=== PATIENT | female | born 1960 | race Caucasian/White ===

== ENCOUNTER 2018-06-15 06:01 | Day surgery (SDC) | payer OTHER, BC ==
[~2018-06-15 06:01] MED LIST: Acetaminophen 325 MG Tab PO SCH; Lactated Ringers 1,000 ML IV SCH; Lidocaine 1%/Sod Bicarbonate in NS 8.4% 1 ML Syringe IDERM PRN; Pregabalin 25 MG Cap PO SCH; Sodium Chloride 0.9% 10 ML Syringe FLUSH PRN; oxyCODONE ER 10 MG TAB.ER PO SCH
[2018-06-15] MEDS ORDERED: ceFAZolin 1 GM Vial ONE ×2 (06:22→06:34)
[2018-06-15] MEDS ORDERED: Iodine/Sodium Iodide 2% Tincture 30 ML Bottle ONE (06:22)
[2018-06-15] MEDS ORDERED: Bupivacaine 0.25% 30 ML SDV ONE (06:22)
[2018-06-15] MEDS ORDERED: Vancomycin 1 GM SDV ONE ×2 (06:22→06:40)
[2018-06-15] MEDS ORDERED: Propofol 200 MG/20 ML SDV ONE (06:25)
[2018-06-15] MEDS ORDERED: fentaNYL 100 MCG/2 ML SDV ONE (06:26)
[2018-06-15] MEDS ORDERED: Midazolam 1 MG/ML 2 ML SDV ONE (06:26)
[2018-06-15] MEDS ORDERED: Bisacodyl 5 MG Tab PO PRN (06:28)
[2018-06-15] MEDS ORDERED: Cyclobenzaprine 10 MG Tab PO PRN (06:28)
[2018-06-15] MEDS ORDERED: Morphine 2 MG/ML Syringe IVPUSH PRN (06:28)
[2018-06-15] MEDS ORDERED: Naloxone 0.4 MG/ML SDV IVPUSH PRN (06:28)
[2018-06-15] MEDS ORDERED: Magnesium Hydroxide 400 MG/5 ML Susp 30 ML Cup PO PRN (06:28)
[2018-06-15] MEDS ORDERED: Sennosides 8.6 MG Tab PO PRN (06:28)
[2018-06-15] MEDS ORDERED: Ondansetron 4 MG/2 ML SDV IVPUSH PRN ×2 (06:28→08:15)
[2018-06-15] MEDS ORDERED: Bupivacaine 0.75% 30 ML SDV ONE (06:30)
[2018-06-15] MEDS ORDERED: Lidocaine 1% 4 ML ONE (06:30)
[2018-06-15] MEDS ORDERED: Dexamethasone 4 MG/ML SDV ONE (06:30)
[2018-06-15] MEDS ORDERED: Morphine 8 MG, EPINEPHrine 0.3 MG, Cefuroxime 750 MG, Ketorolac 30 MG, Sodium Chloride ... ONE ×5 (07:30)
[2018-06-15] MEDS ORDERED: diphenhydrAMINE 50 MG/ML SDV IVPUSH PRN (08:15)
[2018-06-15] MEDS ORDERED: Meperidine 50 MG/ML Vial IVPUSH ONE (08:15)
[2018-06-15] MEDS ORDERED: fentaNYL 100 MCG/2 ML SDV IVPUSH PRN (08:15)
--- NOTE | 2018-06-15 08:39 | PCM.OPNOTE ---
- General Post-Op/Procedure Note Date of Surgery/Procedure: 06/15/18 Operative Procedure(s): right total knee arthroplasty Pre Op Diagnosis: right knee osteoarthrosis Post-Op Diagnosis: Same Anesthesia Technique: Local, MAC, Spinal Primary Surgeon: Vasiliy Dillard Anesthesia Provider: Jorge Alberto Can Director Of Maternity Services: Jeanne Massey Director Of Maternity Services: Sarah Henriquez EBPamela in mLs: 500 Complications: None Condition: Good Free Text/Narrative:: size 5/5 9mm 32x10
[2018-06-15] MEDS ORDERED: Ropivacaine 0.5% 5 MG/ML 30 ML SDV ONE (08:47)
[2018-06-15] MEDS ORDERED: EPINEPHrine 1 MG/ML SDV ONE (08:47)
--- NOTE | 2018-06-15 08:57 | PCM.POSTAN ---
POST ANESTHESIA ASSESSMENT - MENTAL STATUS Mental Status: Alert, Oriented - VITAL SIGNS Pulse Rate: 95 SaO2: 93 Resp Rate: 16 Blood Pressure: 128/42 Temperature: 36.3 C - RESPIRATORY Respiratory Status: Respiratory Rate WNL, Airway Patent, O2 Saturation Stable, Supplemental Oxygen - CARDIOVASCULAR CV Status: Pulse Rate WNL, Blood Pressure Stable - GASTROINTESTINAL GI Status: No Symptoms - PAIN Pain Score: 0 - POST OP HYDRATION Hydration Status: Adequate & Stable
--- NOTE | 2018-06-15 08:58 | OR ---
DATE OF OPERATION: 06/15/2018 SURGEON: Vasiliy Dillard MD OPERATION PERFORMED: Right total knee arthroplasty. PREOPERATIVE DIAGNOSIS: Right knee osteoarthrosis. POSTOPERATIVE DIAGNOSIS: Right knee osteoarthrosis. ANESTHESIA: Local MAC with spinal. ANESTHESIA PROVIDER: Jorge Alberto Can. STUDENT UNION CONSULTANT: Jeanne Massey PA-C and Sarah Henriquez LPN. ESTIMATED BLOOD LOSS: 500 mL. COMPLICATIONS: None. CONDITION: Stable. IMPLANTS: 1. Gilberto size 5 press-fit CR femur. 2. Gilberto size 5 press-fit tibial base plate. 3. Gilberto size 5, 9 mm CS polyethylene insert. 4. Gilberto size 32 x 10 mm press-fit patella. DESCRIPTION OF PROCEDURE: The patient was identified in the preop holding area. Proper site was marked and identified by the surgeon. The patient was taken back to the operating theater. After adequate anesthesia, the patient's right lower extremity had a nonsterile tourniquet applied and it was sterilely prepped and draped in the usual sterile fashion. OR time-out was performed. The patient received 2 g IV Ancef. At this time, the right lower extremity was exsanguinated. Tourniquet was insufflated to 300 mmHg. Standard medial parapatellar incision was made. Medial parapatellar arthrotomy was created. Deep fibers of the MCL were raised and anterior fat pad was resected. At this time, attention was turned to the patella. Patella measured 24, it was resected to a 14 for a 32 x 10 mm patella. Drill holes were then drilled and found to be in adequate position. The drill was then drilled in the distal femur and the intramedullary distal femoral cutting guide was then placed. An 8 mm was resected off the distal femur and was found to be an adequate resection. Sizing guide was placed. It was found to be a size 5 press-fit CR femur that was shown on the implant record at the beginning of this dictation. The drill holes were drilled for the epicondylar axis using [place] line and epicondyles as reference. At this time, the 4-in- 1 cutting block was placed. An anterior posterior and anterior and posterior chamfer cuts were then completed. Attention was turned to the tibia. The posterior medial lateral retractors were placed. The extramedullary tibial guide was placed. It was placed in the old footprint of the ACL. It was aligned with the center of the ankle and 0 degrees of slope, 9 mm was then resected off the unaffected side. There was found to be an acceptable reduction. At this time, posterior osteophytes were removed along with medial and lateral meniscus. A trial implant was placed with a correct sized tibia that was mentioned at the beginning of the dictation. A Gilberto size 5, 9 mm CS polyethylene insert was then placed. The patient's knee was brought through range of motion. The patella was tracking centrally and was stable to varus and valgus stress. Alignment was found to be roughly at 0 degrees. The tibia was stamped and drilled in proper rotation. The universal tibial base plate was impacted in place. Next, the Gilberto size 5 press-fit CR femur impacted into place and the [place] size 5, 9 mm CS polyethylene insert was placed. The patient's knee was brought into full extension. The patella was then press-fit in place at this time. Tourniquet was deflated. One liter dilute Betadine solution was irrigated through the knee along with 3 L of pulse lavage irrigation with Ancef. Periarticular injection was then completed. The patient's knee was brought through a range of motion. Once the cement had time to set up and it was found to be stable to varus valgus stress, the patella was tracking centrally with full range of motion. At this time, a #2 barbed suture was used for closure of the medial parapatellar arthrotomy. Topical tranexamic acid was placed. 2-0 Vicryl was used subcutaneously, Prineo was used for the skin. The patient tolerated the procedure well and was sent to the PACU in stable condition. MMODAL /[id number]
--- NOTE | 2018-06-15 09:01 | PCM.PREANE ---
Preanesthetic Assessment - Procedure Proposed Procedure: Right TKA - Anesthesia/Transfusion/Family Hx Anesthesia History: Prior Anesthesia Without Reaction Family History of Anesthesia Reaction: No - Review of Systems General: No Symptoms Pulmonary: Other (Asthma- only uses albuterol inhaler a couple times a year.) Cardiovascular: Other (HTN, HLD) Gastrointestinal: No Symptoms Neurological: No Symptoms Other: Reports: Diabetes (GS 138 at 0622), Depression - Physical Assessment NPO Status Date: 06/14/18 NPO Status Time: 18:30 Pulse: 79 O2 Sat by Pulse Oximetry: 92 Respiratory Rate: 16 Blood Pressure: 176/72 Temperature: 36.2 C Vital Signs: Last Vital Signs Temp 36.3 C 06/15/18 08:57 Pulse 95 06/15/18 08:57 Resp 16 06/15/18 08:57 BP 128/42 L 06/15/18 08:57 Pulse Ox 93 L 06/15/18 08:57 Height: 1.55 m Weight: 110 kg ASA Class: 2 Mental Status: Alert & Oriented x3 Airway Class: Mallampati = 3 Dentition: Reports: Partial (bottom removable) Thyro-Mental Finger Breadths: 3 Mouth Opening Finger Breadths: 3 ROM/Head Extension: Full Lungs: Clear to Auscultation, Normal Respiratory Effort Cardiovascular: Regular Rate, Regular Rhythm - Lab Values: Laboratory Last Values POC Glucose 138 mg/dL (70-105) H 06/15/18 06:22 MRSA (PCR) Negative 06/03/18 11:48 - Allergies Allergies/Adverse Reactions: Allergies Allergy/AdvReac Type Severity Reaction Status Date / Time No Known Allergies Allergy Verified 06/15/18 06:47 - Blood Blood Available: No - Anesthesia Plan Pre-Op Medication Ordered: None - Acknowledgements Anesthesia Type Planned: Spinal (with post operative adductor canal block ) Pt an Appropriate Candidate for the Planned Anesthesia: Yes Alternatives and Risks of Anesthesia Discussed w Pt/Guardian: Yes Pt/Guardian Understands and Agrees with Anesthesia Plan: Yes PreAnesthesia Questionnaire - HOME MEDS Home Medications: Home Meds Acetaminophen/HYDROcodone [[place] 325-5 MG] 1 tab PO ASDIRECTED PRN 06/15/18 [ History] Cholecalciferol (Vitamin D3) [Vitamin D3] 2,000 unit PO DAILY 06/15/18 [History] Cinnamon Bark [Cinnamon] 1,000 mg PO DAILY 06/15/18 [History] Citalopram Hydrobromide [Celexa] 10 mg PO DAILY 06/15/18 [History] Fish Oil/[place]-3 Fatty Acids [Fish Oil 1,000 MG] 1,000 mg PO DAILY 06/15/18 [ History] Insulin Aspart [NovoLOG] 12 units SUBCUT TID 06/15/18 [History] Insulin Glarg,Human.Rec.Analog [Lantus] 35 units SUBCUT DAILY 06/15/18 [History] Lisinopril 40 mg PO DAILY 06/15/18 [History] atorvaSTATin [Lipitor] 20 mg PO DAILY 06/15/18 [History] metFORMIN [Glucophage XR] 1,000 mg PO BID 06/15/18 [History] - CURRENT (IN HOUSE) MEDS Current Meds: Current Medications Acetaminophen (Tylenol) 975 mg PO ONETIME [facility] Stop: 06/15/18 14:00 Last Admin: 06/15/18 06:41 Dose: 975 mg Aspirin (Ecotrin) 325 mg PO BID FRE[facility] Bisacodyl (Dulcolax) 5 mg PO DAILY PRN PRN Reason: Constipation Cyclobenzaprine HCl (Flexeril) 10 mg PO TID PRN PRN Reason: Spasms Diphenhydramine HCl (Benadryl) 25 mg IVPUSH Q6H PRN PRN Reason: Pruritis Stop: 06/15/18 14:00 Docusate Sodium (Colace) 100 mg PO BID [facility]RE[facility] Famotidine (Pepcid) 20 mg PO Q12H [facility] Fentanyl (Sublimaze) 50 mcg IVPUSH Q5M PRN PRN Reason: Pain Stop: 06/15/18 12:00 Lactated Ringer's (Ringers, Lactated) 1,000 mls @ 125 mls/hr IV ASDIRECTED [facility]RE[facility] Stop: 06/15/18 23:00 Last Admin: 06/15/18 06:25 Dose: 125 mls/hr Cefazolin Sodium/Dextrose 2 gm (/ Premix) 50 mls @ 100 mls/hr IV Q8H [facility]RE[facility] Stop: 06/16/18 07:29 Ketorolac Tromethamine (Toradol) 15 mg IVPUSH Q6H PRN PRN Reason: Pain Lidocaine/Sodium Bicarbonate (Buffered Lidocaine 1% In Ns 8.4%) 0.25 ml IDERM ONETIME PRN PRN Reason: Prior to IV Start Stop: 06/15/18 18:00 Magnesium Hydroxide (Milk Of Magnesia) 30 ml PO BID PRN PRN Reason: Constipation Morphine Sulfate (Morphine) 2 mg IVPUSH Q2H PRN PRN Reason: Breakthrough Pain Naloxone HCl (Narcan) 0.1 mg IVPUSH Q5M PRN PRN Reason: Oversedation Ondansetron HCl (Zofran) 4 mg IVPUSH Q6H PRN PRN Reason: Nausea/Vomiting Ondansetron HCl (Zofran) 4 mg IVPUSH ONETIME PRN PRN Reason: Nausea/Vomiting Stop: 06/15/18 12:00 Oxycodone HCl (Oxycontin) 10 mg PO ONETIME [facility] Stop: 06/15/18 14:00 Last Admin: 06/15/18 06:41 Dose: 10 mg Oxycodone/Acetaminophen (Percocet 325-5 Mg) 1 - 2 tab PO Q4H PRN PRN Reason: Pain Pregabalin (Lyrica) 50 mg PO ONETIME [facility] Stop: 06/15/18 14:00 Last Admin: 06/15/18 06:41 Dose: 50 mg Senna (Senna) 8.6 mg PO BID PRN PRN Reason: Constipation Sodium Chloride (Saline Flush) 10 ml FLUSH ASDIRECTED PRN PRN Reason: Keep Vein Open Stop: 06/15/18 18:00 Discontinued Medications Bupivacaine HCl (Marcaine 0.25%) Confirm Administered Dose 30 ml .ROUTE .STK- MED ONE Stop: 06/15/18 06:23 Last Admin: 06/15/18 08:16 Dose: 30 ml Bupivacaine HCl (Sensorcaine-Mpf 0.75%) Confirm Administered Dose 30 ml .ROUTE .STK-MED ONE Stop: 06/15/18 06:31 Cefazolin Sodium (Ancef) Confirm Administered Dose 2 gm .ROUTE .STK-MED ONE Stop: 06/15/18 06:23 Last Admin: 06/15/18 08:15 Dose: 2 gm Cefazolin Sodium (Ancef) Confirm Administered Dose 2 gm .ROUTE .STK-MED ONE Stop: 06/15/18 06:35 Morphine Sulfate 8 mg/Epinephrine HCl 0.3 mg/Cefuroxime Sodium 750 mg/Ketorolac Tromethamine 30 mg/Sodium Chloride 27.9 ml 0 mg .XX ONETIME ONE Stop: 06/15/18 07:31 Last Admin: 06/15/18 08:16 Dose: 788.3 mg Dexamethasone (Dexamethasone) Confirm Administered Dose 8 mg .ROUTE .STK-MED ONE Stop: 06/15/18 06:31 Epinephrine HCl (Adrenalin) Confirm Administered Dose 1 mg .ROUTE .STK-MED ONE Stop: 06/15/18 08:48 Fentanyl (Sublimaze) Confirm Administered Dose 100 mcg .ROUTE .STK-MED ONE Stop: 06/15/18 06:27 Lidocaine HCl (Xylocaine-Mpf 1%) Confirm Administered Dose 4 mls @ as directed .ROUTE .STK-MED ONE Stop: 06/15/18 06:31 Lidocaine HCl (Xylocaine-Mpf 1%) Confirm Administered Dose 5 mls @ as directed .ROUTE .ST-MED ONE Stop: 06/15/18 06:31 Iodine (Iodine 2% Mild Tincture) Confirm Administered Dose 30 ml .ROUTE .ST- MED ONE Stop: 06/15/18 06:23 Last Admin: 06/15/18 08:12 Dose: 18 ml Meperidine HCl (Meperidine) 12.5 mg IVPUSH ONETIME ONE Stop: 06/15/18 08:16 Midazolam HCl (Versed 1 Mg/Ml) Confirm Administered Dose 2 mg .ROUTE .STK-MED ONE Stop: 06/15/18 06:27 Propofol (Diprivan 20 Ml) Confirm Administered Dose 600 mg .ROUTE .ST-MED ONE Stop: 06/15/18 06:26 Ropivacaine (Naropin 0.5%) Confirm Administered Dose 30 ml .ROUTE .STK-MED ONE Stop: 06/15/18 08:48 Tranexamic Acid (Cyklokapron) Confirm Administered Dose 1,000 mg .ROUTE .STK- MED ONE Stop: 06/15/18 06:23 Last Admin: 06/15/18 08:24 Dose: 1,000 mg Vancomycin HCl (Vancomycin) Confirm Administered Dose 1 gm .ROUTE .STK-MED ONE Stop: 06/15/18 06:23 Vancomycin HCl (Vancomycin) Confirm Administered Dose 1 gm .ROUTE .STK-MED ONE Stop: 06/15/18 06:41 Last Admin: 02/11/19 08:19 Dose: 1 gm
--- NOTE | 2018-06-15 09:53 | CR ---
Right knee: AP and lateral views of the right knee were obtained. Comparison: No previous knee exam. Knee prosthesis is seen. Small amount of soft tissue air is noted. Components of the prosthesis are maintained. Underlying bony structures are intact. Impression: 1. Satisfactory postop radiographic appearance of recently placed right knee prosthesis. Diagnostic code #2
--- NOTE | 2018-06-15 12:03 | PCM.CONS ---
H&P History of Present Illness - General Date of Service: 06/15/18 Admit Problem/Dx: Admission Diagnosis/Problem Admission Diagnosis/Problem Osteoarthritis of knee Source of Information: Patient, Old Records, Provider, RN, RN Notes Reviewed History Limitations: Reports: No Limitations - History of Present Illness Initial Comments - Free Text/Narative: Saritha Esteves is a 57 yo female patient of Dr. Dillard who is post-operative day 0 of right TKA. Hospital medicine was consulted for post-operative medical care. At this time she is resting comfortably in bed. Pain is controlled. She denies any chest pain, shortness of breath, palpitations, nausea, or vomiting. She carries a history of: Diabetes mellitus, HLD, hypertension, depression, asthma. She is a full code. Her primary care provider is Karly Drummond NP. - Related Data Allergies/Adverse Reactions: Allergies Allergy/AdvReac Type Severity Reaction Status Date / Time No Known Allergies Allergy Verified 06/15/18 10:24 Home Medications: Home Meds . [Unable To Obtain] 0 06/15/18 [History] Acetaminophen/HYDROcodone [[place] 325-5 MG] 1 tab PO ASDIRECTED PRN 06/15/18 [ History] Ascorbate Calcium [Vitamin C] 500 mg PO DAILY 06/15/18 [History] Cholecalciferol (Vitamin D3) [Vitamin D3] 2,000 unit PO DAILY 06/15/18 [History] Cinnamon Bark [Cinnamon] 1,000 mg PO BID 06/15/18 [History] Citalopram Hydrobromide [Celexa] 10 mg PO DAILY 06/15/18 [History] Fish Oil/[place]-3 Fatty Acids [Fish Oil 1,000 MG] 1,000 mg PO DAILY 06/15/18 [ History] Insulin Aspart [NovoLOG] 12 units SUBCUT TID 06/15/18 [History] Insulin Glarg,Human.Rec.Analog [Lantus] 35 units SUBCUT DAILY 06/15/18 [History] Lisinopril 40 mg PO DAILY 06/15/18 [History] atorvaSTATin [Lipitor] 20 mg PO DAILY 06/15/18 [History] metFORMIN [Glucophage XR] 1,000 mg PO BID 06/15/18 [History] Past Medical History Other HEENT History: wears glasses. hearing loss right ear. Other Respiratory History: reccomended sleep study 5 years ago. 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 Denies: Fever, Chills HEENT: Reports: No Symptoms. Denies: Headaches, Sore Throat Pulmonary: Reports: No Symptoms. Denies: Shortness of Breath, Wheezing, Cough, Sputum Cardiovascular: Reports: No Symptoms. Denies: Chest Pain, Palpitations, Edema Gastrointestinal: Reports: No Symptoms. Denies: Abdominal Pain, Constipation, Diarrhea, Nausea, Vomiting Genitourinary: Reports: No Symptoms. Denies: Pain Musculoskeletal: Reports: Leg Pain Skin: Reports: No Symptoms. Denies: Cyanosis Psychiatric: Reports: No Symptoms. Denies: Confusion Neurological: Reports: No Symptoms Hematologic/Lymphatic: Reports: No Symptoms Immunologic: Reports: No Symptoms Exam - Exam Exam: See Below - Vital Signs Vital Signs: Last Vital Signs Temp 97.1 F 06/15/18 09:45 Pulse 81 06/15/18 09:45 Resp 20 06/15/18 09:45 BP 130/59 L 06/15/18 09:45 Pulse Ox 98 06/15/18 09:45 Weight: 242 lb 8.14 oz - Exam Quality Assessment: Supplemental Oxygen, DVT Prophylaxis General: Alert, Oriented, Cooperative. No: Mild Distress HEENT: Conjunctiva Clear, EACs Clear, EOMI, Hearing Intact, Mucosa Moist & [place] , Nares Patent, Posterior Pharynx Clear, PERRLA Neck: Supple, Trachea Midline Lungs: Clear to Auscultation, Normal Respiratory Effort Cardiovascular: Regular Rate, Regular Rhythm GI/Abdominal Exam: Normal Bowel Sounds, Soft, Non-Tender, No Distention, No Abnormal Bruit (Female) Exam: Deferred Rectal (Female) Exam: Deferred Back Exam: Normal Inspection, Full Range of Motion Extremities: No Pedal Edema, Normal Capillary Refill, Leg Pain, Limited Range of Motion, Other (Bandage in place on right leg. Bandage is dry and intact. Cooling pack in place. ) Peripheral Pulses: 2+: Radial (L), Radial (R), Dorsalis Pedis (L), Dorsalis Pedis (R) Skin: Warm, Dry, Intact Neurological: Cranial Nerves Intact (grossly ) Neuro Extensive - Mental Status: Alert, Oriented x3, Normal Mood/Affect, Normal Cognition - Patient Data Lab Results Last 24 hrs: Laboratory Results - last 24 hr 06/15/18 Range/Units 06:22 POC Glucose 138 H (70-105) mg/dL Consult PN Assessment/Plan POD#: 0 (1) S/P total knee arthroplasty SNOMED Code(s): 2025003193619, 276645959, 2759371138783 Code(s): Z96.659 - PRESENCE OF UNSPECIFIED ARTIFICIAL KNEE JOINT Priority: High Current Visit: Yes Qualifiers: Laterality: right Qualified Code(s): Z96.651 - Presence of right artificial knee joint (2) Osteoarthritis SNOMED Code(s): 139941746 Code(s): M19.90 - UNSPECIFIED OSTEOARTHRITIS, UNSPECIFIED SITE Priority: High Current Visit: Yes Qualifiers: Osteoarthritis location: knee Osteoarthritis type: primary Laterality: right Qualified Code(s): M17.11 - Unilateral primary osteoarthritis, right knee (3) Asthma SNOMED Code(s): 851474108 Code(s): J45.909 - UNSPECIFIED ASTHMA, UNCOMPLICATED Priority: Low Current Visit: No Qualifiers: Asthma severity: unspecified severity Asthma persistence: unspecified Asthma complication type: uncomplicated Qualified Code(s): J45.909 - Unspecified asthma, uncomplicated (4) HTN (hypertension) SNOMED Code(s): 64730409 Code(s): I10 - ESSENTIAL (PRIMARY) HYPERTENSION Priority: Low Current Visit: No Qualifiers: Hypertension type: unspecified Qualified Code(s): I10 - Essential (primary ) hypertension (5) HLD (hyperlipidemia) SNOMED Code(s): 56613252 Code(s): E78.5 - HYPERLIPIDEMIA, UNSPECIFIED Priority: Low Current Visit : No (6) Diabetes mellitus SNOMED Code(s): 33920813 Code(s): E11.9 - TYPE 2 DIABETES MELLITUS WITHOUT COMPLICATIONS Priority: Low Current Visit: No Qualifiers: Diabetes mellitus type: type 2 Diabetes mellitus long-term insulin use: with terminal carman use Diabetes mellitus complication status: with unspecified complications Qualified Code(s): E11.8 - Type 2 diabetes mellitus with unspecified complications; 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 Problem List Initiated/Reviewed/Updated: Yes Plan: I/P: Acute: S/P right total knee arthroplasty - post-operative day 0 -DVT prophylaxis and pain management per primary care team -PT/OT -IS/RT -Monitor oxygen saturation -Titrate oxygen as needed -Vital signs stable -Monitor labs -Pre-operative Hgb was 12.1 -Pre-operative GFR was >90 -Pre-operative A1C was 7.2% Osteoarthritis of right knee -Pain management per primary care team Chronic: Diabetes HLD HTN Depression Asthma Plan: CM for discharge planning GI prophylaxis Home medications as indicated Other orders as listed above Routine AM labs She is a full code. Her PCP is Karly Drummond NP Thank you for allowing us to participate in the care of this patient!! Requesting Provider: Dr. Dillard Date Consult Requested: 06/15/18 Reason for Consult: Post-operative medical management Patient History Reviewed: Yes Admission H&P Reviewed: Yes Time Spent (in minutes): 40
--- NOTE | 2018-06-15 12:07 | PCM.SN ---
- Free Text/Narrative Note: Right selective femoral nerve block at the adductor canal for post-procedure pain control under US guidance requested by Dr. Dillard. Time Out: 854 Start: 905 End: 909 Chart reviewed. Consent signed. Questions answered. Appropriate monitors applied. Time out performed. Right mid-shaft femur identified with ultrasound, scanning medially of femur, the femoral artery in the adductor canal visualized , and the femoral nerve located laterally to the artery. The skin was prepped lateral to the ultrasound probe with chlorahexadine times two. The 21ga 4 insulated block needle was inserted under direct ultrasound guidance into the adductor canal. 25mL of 0.5% ropivacaine with 1:200,000 epinephrine was injected circumferentially around the nerve with intermittent negative aspiration noted. Patient tolerated the procedure well. Sterile technique noted along with sterile gloves, mask, and sterile probe cover. See picture on progress note and vital signs on nurses notes. Block completed in PACU. Olegario Trujillo CRNA
[2018-06-15] MEDS: Acetaminophen/oxyCODONE 325-5 MG Tab PO PRN ×3 (14:39→23:15)
[2018-06-15] MEDS: ceFAZolin 2 GM in Premix Bag 1 BAG IV SCH ×2 (14:40→22:34)
[2018-06-15] MEDS ORDERED: Insulin Lispro 100 UNIT/ML 10 ML VIAL SUBCUT SCH (15:00)
[2018-06-15] MEDS: Insulin Lispro 100 UNIT/ML 10 ML VIAL SUBCUT SCH ×2 (17:56→22:30)
[2018-06-15] MEDS: Docusate Sodium 100 MG Cap PO SCH (20:32)
[2018-06-15] MEDS: Famotidine 20 MG Tab PO SCH (20:33)
[2018-06-15] MEDS: metFORMIN 500 MG Tab PO SCH (20:33)
[2018-06-15] MEDS: Ketorolac 15 MG/ML SDV IVPUSH PRN (20:40)
[2018-06-15] MEDS ORDERED: Simvastatin 20 MG Tab PO SCH (21:00)
[2018-06-16] MEDS: Acetaminophen/oxyCODONE 325-5 MG Tab PO PRN ×3 (04:03→12:48)
--- NOTE | 2018-06-16 06:21 | PCM.CONSN ---
- General Info Date of Service: 06/16/18 Admission Dx/Problem (Free Text): Admission Diagnosis/Problem Admission Diagnosis/Problem Osteoarthritis of knee Subjective Update: In to see Saritha. She is sitting up in bed and family is at bedside. Potassium is a bit elevated today at 5.5 re-check was 4.8. Otherwise no nursing or patient concerns. Functional Status: Reports: Pain Controlled, Tolerating Diet, Ambulating, Urinating, Incentive Spirometry. Denies: New Symptoms - Review of Systems General: Reports: No Symptoms. Denies: Fever, Malaise, Chills HEENT: Reports: No Symptoms. Denies: Headaches, Sore Throat Pulmonary: Reports: No Symptoms. Denies: Shortness of Breath, Pleuritic Chest Pain, Cough, Sputum, Wheezing Cardiovascular: Reports: No Symptoms. Denies: Chest Pain, Palpitations, Dyspnea on Exertion, Edema, Lightheadedness Gastrointestinal: Reports: No Symptoms. Denies: Abdominal Pain, Constipation, Diarrhea, Nausea, Vomiting Genitourinary: Reports: No Symptoms. Denies: Pain Musculoskeletal: Reports: Leg Pain Skin: Reports: No Symptoms. Denies: Cyanosis Neurological: Reports: No Symptoms. Denies: Confusion Psychiatric: Reports: No Symptoms - Patient Data Vitals - Most Recent: Last Vital Signs Temp 98.2 F 06/15/18 23:11 Pulse 82 06/15/18 23:11 Resp 16 06/15/18 23:11 BP 115/66 06/15/18 23:11 Pulse Ox 95 06/15/18 23:11 Weight - Most Recent: 242 lb 8.14 oz I&O - Last 24 Hours: Intake & Output 06/15/18 06/15/18 06/16/18 14:59 22:59 06:59 Intake Total 400 125 900 Output Total 700 Balance 400 125 200 Lab Results Last 24 Hours: Laboratory Results - last 24 hr 06/15/18 06/15/18 06/15/18 Range/Units 06:22 11:29 17:48 POC Glucose 138 H 161 H 194 H (70-105) mg/dL 06/15/18 Range/Units 22:28 POC Glucose 152 H (70-105) mg/dL Med Orders - Current: Current Medications Aspirin (Ecotrin) 325 mg PO BID [facility] Bisacodyl (Dulcolax) 5 mg PO DAILY PRN PRN Reason: Constipation Cholecalciferol (Vitamin D3) 2,000 units PO DAILY [facility] Citalopram Hydrobromide (Celexa) 10 mg PO DAILY [facility] Cyclobenzaprine HCl (Flexeril) 10 mg PO TID PRN PRN Reason: Spasms Docusate Sodium (Colace) 100 mg PO BID [facility] Last Admin: 06/15/18 20:32 Dose: 100 mg Famotidine (Pepcid) 20 mg PO Q12H [facility] Last Admin: 06/15/18 20:33 Dose: 20 mg Cefazolin Sodium/Dextrose 2 gm (/ Premix) 50 mls @ 100 mls/hr IV Q8H [facility] Stop: 06/16/18 07:29 Last Admin: 06/15/18 22:34 Dose: 100 mls/hr Insulin Glargine (Lantus) 35 unit SUBCUT DAILY [facility] Insulin Human Lispro (Humalog) 0 unit SUBCUT QIDACANDBED [facility]; Protocol Last Admin: 06/15/18 22:30 Dose: Not Given Ketorolac Tromethamine (Toradol) 15 mg IVPUSH Q6H PRN PRN Reason: Pain Last Admin: 06/15/18 20:40 Dose: 15 mg Lisinopril (Prinivil) 40 mg PO DAILY [facility] Magnesium Hydroxide (Milk Of Magnesia) 30 ml PO BID PRN PRN Reason: Constipation Metformin HCl (Glucophage) 1,000 mg PO BID [facility] Last Admin: 06/15/18 20:33 Dose: 1,000 mg Morphine Sulfate (Morphine) 2 mg IVPUSH Q2H PRN PRN Reason: Breakthrough Pain Naloxone HCl (Narcan) 0.1 mg IVPUSH Q5M PRN PRN Reason: Oversedation Ondansetron HCl (Zofran) 4 mg IVPUSH Q6H PRN PRN Reason: Nausea/Vomiting Oxycodone/Acetaminophen (Percocet 325-5 Mg) 1 - 2 tab PO Q4H PRN PRN Reason: Pain Last Admin: 06/16/18 04:03 Dose: 2 tab Senna (Senna) 8.6 mg PO BID PRN PRN Reason: Constipation Simvastatin (Zocor) 20 mg PO BEDTIME [facility] Last Admin: 06/15/18 20:33 Dose: 20 mg Discontinued Medications Acetaminophen (Tylenol) 975 mg PO ONETIME [facility] Stop: 06/15/18 14:00 Last Admin: 06/15/18 06:41 Dose: 975 mg Bupivacaine HCl (Marcaine 0.25%) Confirm Administered Dose 30 ml .ROUTE .STK- MED ONE Stop: 06/15/18 06:23 Last Admin: 06/15/18 08:16 Dose: 30 ml Bupivacaine HCl (Sensorcaine-Mpf 0.75%) Confirm Administered Dose 30 ml .ROUTE .STK-MED ONE Stop: 06/15/18 06:31 Cefazolin Sodium (Ancef) Confirm Administered Dose 2 gm .ROUTE .STK-MED ONE Stop: 06/15/18 06:23 Last Admin: 06/15/18 08:15 Dose: 2 gm Cefazolin Sodium (Ancef) Confirm Administered Dose 2 gm .ROUTE .STK-MED ONE Stop: 06/15/18 06:35 Morphine Sulfate 8 mg/Epinephrine HCl 0.3 mg/Cefuroxime Sodium 750 mg/Ketorolac Tromethamine 30 mg/Sodium Chloride 27.9 ml 0 mg .XX ONETIME ONE Stop: 06/15/18 07:31 Last Admin: 06/15/18 08:16 Dose: 788.3 mg Dexamethasone (Dexamethasone) Confirm Administered Dose 8 mg .ROUTE .STK-MED ONE Stop: 06/15/18 06:31 Diphenhydramine HCl (Benadryl) 25 mg IVPUSH Q6H PRN PRN Reason: Pruritis Stop: 06/15/18 14:00 Epinephrine HCl (Adrenalin) Confirm Administered Dose 1 mg .ROUTE .STK-MED ONE Stop: 06/15/18 08:48 Fentanyl (Sublimaze) Confirm Administered Dose 100 mcg .ROUTE .STK-MED ONE Stop: 06/15/18 06:27 Fentanyl (Sublimaze) 50 mcg IVPUSH Q5M PRN PRN Reason: Pain Stop: 06/15/18 12:00 Lactated Ringer's (Ringers, Lactated) 1,000 mls @ 125 mls/hr IV ASDIRECTED [facility] Stop: 06/15/18 23:00 Last Admin: 06/15/18 06:25 Dose: 125 mls/hr Lidocaine HCl (Xylocaine-Mpf 1%) Confirm Administered Dose 4 mls @ as directed .ROUTE .STK-MED ONE Stop: 06/15/18 06:31 Lidocaine HCl (Xylocaine-Mpf 1%) Confirm Administered Dose 5 mls @ as directed .ROUTE .[facility]-MED ONE Stop: 06/15/18 06:31 Insulin Human Lispro (Humalog) 12 unit SUBCUT TID [facility] Iodine (Iodine 2% Mild Tincture) Confirm Administered Dose 30 ml .ROUTE .ST- MED ONE Stop: 06/15/18 06:23 Last Admin: 06/15/18 08:12 Dose: 18 ml Lidocaine/Sodium Bicarbonate (Buffered Lidocaine 1% In Ns 8.4%) 0.25 ml IDERM ONETIME PRN PRN Reason: Prior to IV Start Stop: 06/15/18 18:00 Meperidine HCl (Meperidine) 12.5 mg IVPUSH ONETIME ONE Stop: 06/15/18 08:16 Last Admin: 06/15/18 18:35 Dose: Not Given Midazolam HCl (Versed 1 Mg/Ml) Confirm Administered Dose 2 mg .ROUTE .[facility] ONE Stop: 06/15/18 06:27 Ondansetron HCl (Zofran) 4 mg IVPUSH ONETIME PRN PRN Reason: Nausea/Vomiting Stop: 06/15/18 12:00 Oxycodone HCl (Oxycontin) 10 mg PO ONETIME [facility] Stop: 06/15/18 14:00 Last Admin: 06/15/18 06:41 Dose: 10 mg Pregabalin (Lyrica) 50 mg PO ONETIME [facility] Stop: 06/15/18 14:00 Last Admin: 06/15/18 06:41 Dose: 50 mg Propofol (Diprivan 20 Ml) Confirm Administered Dose 600 mg .ROUTE .ST-MED ONE Stop: 06/15/18 06:26 Ropivacaine (Naropin 0.5%) Confirm Administered Dose 30 ml .ROUTE .ST-MED ONE Stop: 06/15/18 08:48 Sodium Chloride (Saline Flush) 10 ml FLUSH ASDIRECTED PRN PRN Reason: Keep Vein Open Stop: 06/15/18 18:00 Tranexamic Acid (Cyklokapron) Confirm Administered Dose 1,000 mg .ROUTE .STK- MED ONE Stop: 06/15/18 06:23 Last Admin: 06/15/18 08:24 Dose: 1,000 mg Vancomycin HCl (Vancomycin) Confirm Administered Dose 1 gm .ROUTE .STK-MED ONE Stop: 06/15/18 06:23 Vancomycin HCl (Vancomycin) Confirm Administered Dose 1 gm .ROUTE .STK-MED ONE Stop: 06/15/18 06:41 Last Admin: 06/15/18 08:19 Dose: 1 gm - Exam Quality Assessment: DVT Prophylaxis General: Alert, Oriented, Cooperative, No Acute Distress HEENT: Pupils Equal, Pupils Reactive, EOMI, Mucous Membr. Moist/[place] Neck: Supple, Trachea Midline, No JVD Lungs: Clear to Auscultation, Normal Respiratory Effort Cardiovascular: Regular Rate, Regular Rhythm GI/Abdominal Exam: Normal Bowel Sounds, Soft, Non-Tender, No Distention, No Abnormal Bruit (Female) Exam: Deferred Back Exam: Normal Inspection, Full Range of Motion Extremities: No Pedal Edema, Normal Capillary Refill, Leg Pain, Limited Range of Motion, Other Peripheral Pulses: 2+: Radial (L), Radial (R), Dorsalis Pedis (L), Dorsalis Pedis (R) Skin: Warm, Dry, Intact Wound/Incisions: Dressing Dry and Intact, No Drainage Neurological: No New Focal Deficit Psy/Mental Status: Alert, Normal Affect, Normal Mood Consult PN Assessment/Plan POD#: 1 (0) (1) S/P total knee arthroplasty SNOMED Code(s): 5700006713484, 915545605, 5987701334065 Code(s): Z96.659 - PRESENCE OF UNSPECIFIED ARTIFICIAL KNEE JOINT Priority: High Current Visit: Yes Qualifiers: Laterality: right Qualified Code(s): Z96.651 - Presence of right artificial knee joint (2) Osteoarthritis SNOMED Code(s): 192234299 Code(s): M19.90 - UNSPECIFIED OSTEOARTHRITIS, UNSPECIFIED SITE Priority: High Current Visit: Yes Qualifiers: Osteoarthritis location: knee Osteoarthritis type: primary Laterality: right Qualified Code(s): M17.11 - Unilateral primary osteoarthritis, right knee (3) Asthma SNOMED Code(s): 063033351 Code(s): J45.909 - UNSPECIFIED ASTHMA, UNCOMPLICATED Priority: Low Current Visit: No Qualifiers: Asthma severity: unspecified severity Asthma persistence: unspecified Asthma complication type: uncomplicated Qualified Code(s): J45.909 - Unspecified asthma, uncomplicated (4) HTN (hypertension) SNOMED Code(s): 53990479 Code(s): I10 - ESSENTIAL (PRIMARY) HYPERTENSION Priority: Low Current Visit: No Qualifiers: Hypertension type: unspecified Qualified Code(s): I10 - Essential (primary ) hypertension (5) HLD (hyperlipidemia) SNOMED Code(s): 24886493 Code(s): E78.5 - HYPERLIPIDEMIA, UNSPECIFIED Priority: Low Current Visit : No (6) Diabetes mellitus SNOMED Code(s): 84384097 Code(s): E11.9 - TYPE 2 DIABETES MELLITUS WITHOUT COMPLICATIONS Priority: Low Current Visit: No Qualifiers: Diabetes mellitus type: type 2 Diabetes mellitus penitentiary insulin use: with terminal supervisor use Diabetes mellitus complication status: with unspecified complications Qualified Code(s): E11.8 - Type 2 diabetes mellitus with unspecified complications; Z79.4 - halfway (current) use of insulin Problem List Initiated/Reviewed/Updated: Yes My Orders Last 24 Hours: My Active Orders 06/15/18 14:29 Accu Check [Blood Glucose Check, Bedside] [RC] QIDACANDBED 06/15/18 17:00 Insulin Lispro [HumaLOG] See Protocol SUBCUT QIDACANDBED Plan: I/P: Acute: S/P right total knee arthroplasty - post-operative day 1 -DVT prophylaxis and pain management per primary care team -PT/OT -IS/RT -Monitor oxygen saturation -Titrate oxygen as needed -Vital signs stable -Monitor labs -Pre-operative Hgb was 12.1; Now 10.3 -Pre-operative GFR was >90; Now >60 -Pre-operative A1C was 7.2% Osteoarthritis of right knee -Pain management per primary care team Chronic: Diabetes HLD HTN Depression Asthma Plan: CM for discharge planning GI prophylaxis Home medications as indicated Other orders as listed above Routine AM labs She is a full code. Her PCP is Karly Drummond NP From a hospitalist standpoint Saritha is doing well. She has been up ambulating and is working with therapies. She off of oxygen and has urinated. Vital signs and labs remain stable with the exception of potassium, which was 5.5. Recheck showed 4.8. She has been using her IS. She is cleared for discharge pending PT/ OT and primary team agreement. Thank you for allowing us to participate in the care of this patient!!
[2018-06-16] MEDS: Ketorolac 15 MG/ML SDV IVPUSH PRN (06:35)
[2018-06-16] MEDS: ceFAZolin 2 GM in Premix Bag 1 BAG IV SCH (06:38)
[2018-06-16] MEDS: Insulin Lispro 100 UNIT/ML 10 ML VIAL SUBCUT SCH ×2 (08:00→11:39)
[2018-06-16] MEDS: Docusate Sodium 100 MG Cap PO SCH (08:24)
[2018-06-16] MEDS: metFORMIN 500 MG Tab PO SCH (08:24)
[2018-06-16] MEDS: Famotidine 20 MG Tab PO SCH (08:24)
[2018-06-16] MEDS ORDERED: Lisinopril 20 MG Tab PO SCH (09:00)
[2018-06-16] MEDS ORDERED: Cholecalciferol (Vitamin D3) 1,000 Unit Tab PO SCH (09:00)
[2018-06-16] MEDS ORDERED: Aspirin 325 MG Tab.EC PO SCH (09:00)
[2018-06-16] MEDS ORDERED: Citalopram 10 MG Tab PO SCH (09:00)
[2018-06-16] MEDS ORDERED: Insulin Glarg,Human.Rec.Analog 100 UNIT/ML ML SUBCUT SCH (09:00)
--- NOTE | 2018-06-16 09:38 | PCM48HPAN ---
Post Anesthesia Note - EVALUATION WITHIN 48HRS OF ANESTHETIC Vital Signs in Normal Range: Yes Patient Participated in Evaluation: Yes Respiratory Function Stable: Yes Airway Patent: Yes Cardiovascular Function Stable: Yes Hydration Status Stable: Yes Pain Control Satisfactory: Yes Nausea and Vomiting Control Satisfactory: Yes Mental Status Recovered: Yes - COMMENTS/OBSERVATIONS Free Text/Narrative:: Pt doing well resting in bed. Denies any headaches, residual numbness/tingling to LE, or back pain. Pain well controlled.
== END 2018-06-16 13:43 | disposition home or self-care (01) ==
LOC: JD.SDS 06:01 → JD.MS 06:08 → JD.SDS 06-16 13:43
PROVIDERS: ATTEND Orthopaedic Surgery
DX: M17.11 Unilateral primary osteoarthritis, right knee (principal); E11.9 Type 2 diabetes mellitus without complications; E78.2 Mixed hyperlipidemia; I10 Essential (primary) hypertension; F32.9 Major depressive disorder, single episode, unspecified; J45.909 Unspecified asthma, uncomplicated; Z88.0 Allergy status to penicillin; Z79.4 Long term (current) use of insulin; Z79.899 Other long term (current) drug therapy
CPT/HCPCS: 27447; 36415; 73560; 80053; 82962; 84132; 85027; 87641; 94760; 97110; 97116; 97161; 97165; 97530; 97535; A9270; C1776; J0171; J0690; J0697; J1100; J1885; J2001; J2250; J2270; J2704; J2795; J3010; J3370; J3490; J7120; 01402; 64450

== ENCOUNTER 2018-10-06 08:12 | Emergency (ER) | payer OTHER, BC ==
--- NOTE | 2018-10-06 08:23 | EDM.PDOC ---
ED HPI GENERAL MEDICAL PROBLEM - General Chief Complaint: Respiratory Problem Stated Complaint: SOB Time Seen by Provider: 10/06/18 08:22 - History of Present Illness INITIAL COMMENTS - FREE TEXT/NARRATIVE: 57-year-old female presents emergency room with shortness of breath. Patient has had this for about the last either 6 months progressively getting worse Ashu was seen couple weeks ago started on Zithromax in the clinic this did not seem to help. She does not have significant discomfort with this but does have significant shortness of breath with this making ambulation difficult and the amount she can exercise severely diminished. The patient does not smoke. However she keeps reinforcing her ability to normal activities at home and at work are diminished because of the shortness of breath. She is treated for hyperlipidemia and has long-standing type 2 diabetes. At times she gets discomfort no chest worsened by deep breathing. Patient does have a history of asthma but this is been doing very well she uses her nebulizers including her nebulized steroids and albuterol. Right Chest Pain Score (Numeric/FACES): 3 - Related Data Allergies Allergy/AdvReac Type Severity Reaction Status Date / Time No Known Allergies Allergy Verified 10/06/18 08:27 Home Meds: Home Meds Acetaminophen/oxyCODONE [Percocet 325-5 MG] 1 - 2 tab PO Q6H PRN #60 tablet 03/23 [Rx] Aspirin [Ecotrin EC] 325 mg PO BID #84 tab.ec 06/15/18 [Rx] Bisacodyl [Dulcolax] 5 mg PO DAILY PRN tablet 06/15/18 [Rx] Cholecalciferol (Vitamin D3) [Vitamin D3] 2,000 unit PO DAILY 06/15/18 [History] Citalopram Hydrobromide [Celexa] 10 mg PO DAILY 06/15/18 [History] Cyclobenzaprine [Flexeril] 10 mg PO TID PRN #40 tablet 06/15/18 [Rx] Docusate Sodium [Colace] 100 mg PO BID cap 06/15/18 [Rx] Famotidine [Pepcid] 20 mg PO Q12H tablet 06/15/18 [Rx] Insulin Aspart [NovoLOG] 12 units SUBCUT TID 06/15/18 [History] Insulin Glarg,Human.Rec.Analog [Lantus] 35 units SUBCUT DAILY 06/15/18 [History] Lisinopril 40 mg PO DAILY 06/15/18 [History] Magnesium Hydroxide [Milk of Magnesia] 30 ml PO BID PRN cup 06/15/18 [Rx] Sennosides [Senna] 8.6 mg PO BID PRN tablet 06/15/18 [Rx] atorvaSTATin [Lipitor] 20 mg PO DAILY 06/15/18 [History] metFORMIN [Glucophage XR] 1,000 mg PO BID 06/15/18 [History] Furosemide [Lasix] 20 mg PO DAILY #30 tab 10/06/18 [Rx] Past Medical History Other HEENT History: wears glasses. hearing loss right ear. Other Respiratory History: reccomended sleep study 5 years ago. patient did not follow up at that time Other Gastrointestinal History: [employer] History: Reports: Other [employer] History: X4 Musculoskeletal History: Reports: Arthritis Endocrine/Metabolic History: Reports: Diabetes, Type II, Obesity/BMI 30+ Social & Family History - Caffeine Use Caffeine Use: Reports: Coffee, Soda ED ROS GENERAL - Review of Systems Review Of Systems: See Below Constitutional: Reports: No Symptoms HEENT: Reports: No Symptoms Respiratory: Reports: Shortness of Breath, Pleuritic Chest Pain, Cough (Minimal) . Denies: No Symptoms, Wheezing, Hemoptysis Cardiovascular: Reports: Chest Pain (Mild minimal not going on at present) Endocrine: Reports: No Symptoms GI/Abdominal: Reports: No Symptoms : Reports: No Symptoms Musculoskeletal: Reports: No Symptoms Skin: Reports: No Symptoms Neurological: Reports: No Symptoms Psychiatric: Reports: No Symptoms ED EXAM, GENERAL - Physical Exam Exam: See Below Exam Limited By: No Limitations General Appearance: Alert, No Apparent Distress Head: Atraumatic, Normocephalic Neck: Normal Inspection, Supple, Non-Tender, Full Range of Motion. No: Lymphadenopathy (L), Lymphadenopathy (R) Respiratory/Chest: No Respiratory Distress, Lungs Clear, Normal Breath Sounds, Other (No wheezing she is moving air very well) Cardiovascular: Normal Peripheral Pulses, Regular Rate, Rhythm, Other (She might have a little bit of edema but she is heavyset and this is sometimes difficult to tell) GI/Abdominal: Normal Bowel Sounds, Soft, Non-Tender, Other (She is heavyset.) Back Exam: Normal Inspection. No: CVA Tenderness (L), CVA Tenderness (R) Neurological: Alert, Oriented, Normal Cognition, No Motor/Sensory Deficits Course - Vital Signs Last Recorded V/S: Last Vital Signs Temp 36.8 C 10/06/18 08:23 Pulse 81 10/06/18 08:23 Resp 16 10/06/18 08:23 BP 180/85 H 10/06/18 08:23 Pulse Ox 95 10/06/18 08:23 - Orders/Labs/Meds Orders: Active Orders 24 hr Category Date Time Status EKG Documentation Completion [RC] STAT Care 10/06/18 08:38 Active Sodium Chloride 0.9% [Normal Saline] 100 ml Med 10/06/18 12:00 Active IV ASDIRECTED Sodium Chloride 0.9% [Saline Flush] Med 10/06/18 11:54 Active 10 ml FLUSH ONETIME PRN Medication Orders Sodium Chloride (Normal Saline) 100 mls @ 75 mls/hr IV ASDIRECTED [facility] Last Admin: 10/06/18 12:06 Dose: 75 mls/hr Sodium Chloride (Saline Flush) 10 ml FLUSH ONETIME PRN PRN Reason: IV FLUSH Last Admin: 10/06/18 12:06 Dose: 10 ml Labs: Laboratory Tests 10/06/18 10/06/18 10/06/18 Range/Units 08:56 08:56 08:56 WBC 10.40 H (3.98-10.04) K/mm3 RBC 4.01 (3.98-5.22) M/mm3 Hgb 10.2 L (11.2-15.7) gm/L Hct 32.7 L (34.1-44.9) % MCV 81.5 (79.4-94.8) fl MCH 25.4 L (25.6-32.2) pg MCHC 31.2 L (32.2-35.5) g/dl RDW Std Deviation 43.9 (36.4-46.3) fL Plt Count 259 D (182-369) K/mm3 MPV 10.5 (9.4-12.3) fl Neutrophils % (Manual) 69 H (40-60) % Band Neutrophils % 0 (0-10) % Lymphocytes % (Manual) 19 L (20-40) % Atypical Lymphs % 0 % Monocytes % (Manual) 2 (2-10) % Eosinophils % (Manual) 10 H (0.7-5.8) % Basophils % (Manual) 0 L (0.1-1.2) Platelet Estimate Adequate RBC Morph Comment Normal D-Dimer, Quantitative 2.11 H (0.19-0.50) mg/L Sodium 141 (136-145) mEq/L Potassium 4.2 (3.5-5.1) mEq/L Chloride 105 (98-107) mEq/L Carbon Dioxide 27 (21-32) mEq/L Anion Gap 13.2 (5-15) BUN 13 (7-18) mg/dL Creatinine 0.7 (0.55-1.02) mg/dL Est Cr Clr Drug Dosing 66.10 mL/min Estimated GFR (MDRD) > 60 (>60) mL/min BUN/Creatinine Ratio 18.6 H (14-18) Glucose 137 H (74-106) mg/dL Calcium 9.0 (8.5-10.1) mg/dL Total Bilirubin 0.4 (0.2-1.0) mg/dL AST 15 (15-37) U/L ALT 24 (14-59) U/L Alkaline Phosphatase 102 (46-116) U/L Troponin I < 0.017 (0.00-0.056) ng/mL NT-Pro-B Natriuret Pep (0-125) pg/mL Total Protein 6.9 (6.4-8.2) g/dl Albumin 3.3 L (3.4-5.0) g/dl Globulin 3.6 gm/dL Albumin/Globulin Ratio 0.9 L (1-2) 10/06/18 Range/Units 08:56 WBC (3.98-10.04) K/mm3 RBC (3.98-5.22) M/mm3 Hgb (11.2-15.7) gm/L Hct (34.1-44.9) % MCV (79.4-94.8) fl MCH (25.6-32.2) pg MCHC (32.2-35.5) g/dl RDW Std Deviation (36.4-46.3) fL Plt Count (182-369) K/mm3 MPV (9.4-12.3) fl Neutrophils % (Manual) (40-60) % Band Neutrophils % (0-10) % Lymphocytes % (Manual) (20-40) % Atypical Lymphs % % Monocytes % (Manual) (2-10) % Eosinophils % (Manual) (0.7-5.8) % Basophils % (Manual) (0.1-1.2) Platelet Estimate RBC Morph Comment D-Dimer, Quantitative (0.19-0.50) mg/L Sodium (136-145) mEq/L Potassium (3.5-5.1) mEq/L Chloride (98-107) mEq/L Carbon Dioxide (21-32) mEq/L Anion Gap (5-15) BUN (7-18) mg/dL Creatinine (0.55-1.02) mg/dL Est Cr Clr Drug Dosing mL/min Estimated GFR (MDRD) (>60) mL/min BUN/Creatinine Ratio (14-18) Glucose (74-106) mg/dL Calcium (8.5-10.1) mg/dL Total Bilirubin (0.2-1.0) mg/dL AST (15-37) U/L ALT (14-59) U/L Alkaline Phosphatase (46-116) U/L Troponin I (0.00-0.056) ng/mL NT-Pro-B Natriuret Pep 307 H (0-125) pg/mL Total Protein (6.4-8.2) g/dl Albumin (3.4-5.0) g/dl Globulin gm/dL Albumin/Globulin Ratio (1-2) Meds: Medications Generic Name Dose Route Start Last Admin Trade Name Freq PRN Reason Stop Dose Admin Sodium Chloride 100 mls @ 75 mls/hr 10/06/18 12:00 10/06/18 12:06 Normal Saline IV 75 mls/hr ASDIRECTED [facility]REIDA Administration Sodium Chloride 10 ml 10/06/18 11:54 10/06/18 12:06 Saline Flush FLUSH 10 ml ONETIME PRN Administration IV FLUSH Discontinued Medications Generic Name Dose Route Start Last Admin Trade Name Freq PRN Reason Stop Dose Admin Furosemide 40 mg 10/06/18 11:29 10/06/18 13:40 Lasix IVPUSH 10/06/18 11:30 40 mg NOW ONE Administration Furosemide Confirm 10/06/18 13:37 10/06/18 13:41 Lasix Administered 10/06/18 13:38 Not Given Dose 40 mg .ROUTE .STK-MED ONE Iohexol 75 ml 10/06/18 11:54 10/06/18 12:06 Omnipaque IVPUSH 10/06/18 11:55 75 ml ONETIME ONE Administration Potassium Chloride 10 meq 10/06/18 11:29 10/06/18 13:41 Klor-Con 10 PO 10/06/18 11:30 10 meq ONETIME ONE Administration - Re-Assessments/Exams Free Text/Narrative Re-Assessment/Exam: 10/06/18 11:27 Still waiting for her d-dimer. Lab is having issues calibrating the machine. We' ll try her on 40 mg of IV Lasix as she does have some signs of failure on her chest x-ray and see if this helps 10/06/18 14:19 Her proBNP was elevated in the low 300 range. CTA was negative for PE she has some atelectasis or an infiltrate in the right base. The patient was given Lasix and has voided several times she is more ambulatory feels much better and would really like to go home. We'll discharge at this time with regards to the CT findings of a possible infiltrate the patient was just treated with Zithromax about 10 days ago and would like this watched conservatively at this point. Should be started on Lasix 20 mg daily by mouth. With follow-up in the clinic later this week. We'll put an order in for an echocardiogram further treatment for the heart failure will depend on the results of this.. Departure - Departure Time of Disposition: 14:20 Disposition: Home, Self-Care 01 Clinical Impression: CHF (congestive heart failure) - Discharge Information Prescriptions: Furosemide [Lasix] 20 mg PO DAILY #30 tab Referrals: Karly Drummond NP [Primary Care Provider] - Forms: ED Department Discharge Additional Instructions: Return to the emergency room with any questions problems or worsening symptoms. Take the Lasix one pill every morning and have this adjusted by your primary care provider when you see her later this week. Follow-up in the clinic at the end of this week. An echocardiogram has been ordered for you they will contact you for a time to get this done. - My Orders Last 24 Hours: My Active Orders 10/06/18 08:38 EKG Documentation Completion [RC] STAT 10/06/18 11:54 Sodium Chloride 0.9% [Saline Flush] 10 ml FLUSH ONETIME PRN 10/06/18 12:00 Sodium Chloride 0.9% [Normal Saline] 100 ml IV ASDIRECTED - Assessment/Plan Last 24 Hours: My Active Orders 10/06/18 08:38 EKG Documentation Completion [RC] STAT 10/06/18 11:54 Sodium Chloride 0.9% [Saline Flush] 10 ml FLUSH ONETIME PRN 10/06/18 12:00 Sodium Chloride 0.9% [Normal Saline] 100 ml IV ASDIRECTED
--- NOTE | 2018-10-06 11:16 | CR ---
Chest: Two views of the chest were obtained. Comparison: No prior chest x-ray. Mild degenerative change is seen within the spine. Heart size at the upper limits of normal. Pulmonary vessels are felt to be slightly congested. No alveolar densities are seen. Impression: 1. Findings suspicious for mild CHF. Diagnostic code #3
[2018-10-06] MEDS ORDERED: Furosemide 40 MG/4 ML VIAL IVPUSH ONE (11:29)
[2018-10-06] MEDS ORDERED: Potassium Chloride 10 MEQ Tab.ER PO ONE (11:29)
[2018-10-06] MEDS ORDERED: Sodium Chloride 0.9% 10 ML Syringe FLUSH PRN (11:54)
[2018-10-06] MEDS ORDERED: Iohexol 350 MG/ML 75 ML Bottle IVPUSH ONE (11:54)
[2018-10-06] MEDS ORDERED: Sodium Chloride 0.9% 100 ML IV SCH (12:00)
[2018-10-06] MEDS ORDERED: Furosemide 40 MG/4 ML VIAL ONE (13:37)
--- NOTE | 2018-10-06 13:57 | CT ---
CT chest Technique: Multiple axial sections through the chest were obtained. Intravenous contrast was utilized. Comparison: Prior chest x-ray performed earlier on the same day. Findings: Pulmonary arteries are well opacified. No filling defects are seen to indicate pulmonary embolism. Aorta shows no aneurysm or dissection. No pericardial fluid is seen. Small portion of the visualized upper abdominal structures are within normal limits. Several mediastinal lymph nodes are seen which are felt to be within normal limits. Haziness is noted within the lungs presumably due to mild pulmonary vascular congestion. Atelectasis is noted within the right lung base. Impression: 1. Haziness within both lungs suspicious for pulmonary vascular congestion. 2. No findings of pulmonary embolism. 3. Right basilar atelectasis. Diagnostic code #3 I agree with preliminary report from [facility] (additional finding as noted above), finalized on 10/06/18, 2:05 PM Central Time, code #2
== END 2018-10-06 14:32 | disposition home or self-care (01) ==
LOC: JD.ED 08:12
DX: I50.9 Heart failure, unspecified (principal); E11.9 Type 2 diabetes mellitus without complications; E66.9 Obesity, unspecified; E78.5 Hyperlipidemia, unspecified; M19.90 Unspecified osteoarthritis, unspecified site; Z79.4 Long term (current) use of insulin; Z79.899 Other long term (current) drug therapy; Z79.82 Long term (current) use of aspirin
CPT/HCPCS: 36415; 71046; 71275; 80053; 83880; 84484; 85007; 85027; 85379; 93005; 96374; 99285; A9270; J1940; J7030; Q9967

== ENCOUNTER 2020-02-01 17:02 | Emergency (ER) | payer OTHER, BC ==
[2020-02-01] MEDS ORDERED: Sodium Chloride 0.9% 10 ML Syringe FLUSH PRN (17:27)
[2020-02-01] MEDS ORDERED: methylPREDNISolone Sodium Succinate 125 MG/2 ML SDV IVPUSH ONE (17:27)
[2020-02-01] MEDS ORDERED: Albuterol 0.083% 2.5 MG/3 ML Neb Soln NEB SCH (17:45)
[2020-02-01] MEDS ORDERED: Albuterol 0.083% 2.5 MG/3 ML Neb Soln ONE (17:50)
--- NOTE | 2020-02-01 17:55 | EDM.PDOC ---
ED HPI GENERAL MEDICAL PROBLEM - General Chief Complaint: Respiratory Problem Stated Complaint: SHORTNESS OF BREATH AND COUGH Time Seen by Provider: 02/01/20 17:24 Source of Information: Reports: Patient, RN Notes Reviewed History Limitations: Reports: No Limitations - History of Present Illness INITIAL COMMENTS - FREE TEXT/NARRATIVE: Patient is a 59-year-old female who presents to the ED for evaluation of her ongoing shortness of breath and cough. Patient states she does have a history of asthma, she has been dealing with this cough and shortness of breath for months now. She was tested for COVID-19 at work on Friday, and found out yesterday that she tested negative. Patient states she is using her home nebulizers and albuterol inhalers with little relief. She states she has been using her nebulizers 2 times a day. 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 She is not had any fevers or chills, nausea or vomiting or diarrhea. Patient notes this last July, she was hospitalized for similar symptoms and found to have fluid in her left lung. She is diabetic as well, and takes multiple medications the patient's primary care provider is Karly Drummond, and she is not on a steroid inhaler. - Related Data Allergies Allergy/AdvReac Type Severity Reaction Status Date / Time amoxicillin [From Augmentin] Allergy Vomiting Verified 02/01/20 17:12 clavulanic acid Allergy Vomiting Verified 02/01/20 17:12 [From Augmentin] Home Meds: Home Meds Acetaminophen/oxyCODONE [Percocet 325-5 MG] 1 - 2 tab PO Q6H PRN #60 tablet 06/15/18 [Rx] Aspirin [Ecotrin EC] 325 mg PO BID #84 tab.ec 06/15/18 [Rx] Cholecalciferol (Vitamin D3) [Vitamin D3] 2,000 unit PO DAILY 06/15/18 [History] Citalopram Hydrobromide [Celexa] 10 mg PO DAILY 06/15/18 [History] Cyclobenzaprine [Flexeril] 10 mg PO TID PRN #40 tablet 06/15/18 [Rx] Famotidine [Pepcid] 20 mg PO Q12H tablet 06/15/18 [Rx] Insulin Aspart [NovoLOG] 12 units SUBCUT TID 06/15/18 [History] Insulin Glarg,Human.Rec.Analog [Lantus] 35 units SUBCUT DAILY 06/15/18 [History] Lisinopril 40 mg PO DAILY 06/15/18 [History] atorvaSTATin [Lipitor] 20 mg PO DAILY 06/15/18 [History] metFORMIN [Glucophage XR] 1,000 mg PO BID 06/15/18 [History] Furosemide [Lasix] 20 mg PO DAILY #30 tab 10/06/18 [Rx] Albuterol [Proventil Neb Soln] 2.5 mg INH QID #1 box 02/01/20 [Rx] Fluticasone Propion/Salmeterol [Advair 250-50 Diskus] 1 inh PO BID #1 device 02/01/20 [Rx] predniSONE 20 mg PO ASDIRECTED #15 tab 02/01/20 [Rx] Past Medical History HEENT History: Reports: Hard of Hearing, Impaired Vision Other HEENT History: wears glasses. hearing loss right ear. Cardiovascular History: Reports: High Cholesterol, Hypertension Respiratory History: Reports: Asthma, Other (See Below) Other Respiratory History: reccomended sleep study 5 years ago. 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 ED EXAM, GENERAL - Physical Exam Exam: See Below Exam Limited By: No Limitations General Appearance: Alert, WD/WN, No Apparent Distress (pt has dry, tight intermittent cough and clears her throat multiple times throughout exam) Respiratory/Chest: No Respiratory Distress, Lungs Clear, No Accessory Muscle Use, Chest Non-Tender, Decreased Breath Sounds (diffuse bilaterally) Cardiovascular: Normal Peripheral Pulses, Regular Rate, Rhythm, No Murmur Peripheral Pulses: 2+: Radial (L), Radial (R) Extremities: Normal Inspection, Normal Capillary Refill Neurological: Alert, Oriented, Normal Cognition, No Motor/Sensory Deficits Psychiatric: Normal Affect, Normal Mood Skin Exam: Warm, Dry, Intact, Normal Color, No Rash EKG INTERPRETATION EKG Date: 02/01/20 Time: 17:09 Rhythm: NSR Rate (Beats/Min): 80 [place]: Normal P-Wave: Present QRS: Normal ST-T: Normal QT: Normal EKG Interpretation Comments: No obvious ischemia or acute ST changes noted, reviewed by myself and Dr. Garvin. Course - Vital Signs Last Recorded V/S: Last Vital Signs Temp 97.2 F 02/01/20 17:06 Pulse 91 02/01/20 17:06 Resp 22 H 02/01/20 17:06 BP 180/70 H 02/01/20 17:06 Pulse Ox 96 02/01/20 18:01 - Orders/Labs/Meds Orders: Active Orders 24 hr Category Date Time Status Peripheral IV Insertion Adult [OM.PC] Routine Oth 02/01/20 17:27 Ordered Labs: Laboratory Tests 02/01/20 02/01/20 02/01/20 Range/Units 17:16 17:16 17:16 WBC 11.99 H (3.98-10.04) K/mm3 RBC 4.81 (3.98-5.22) M/mm3 Hgb 11.4 (11.2-15.7) gm/dl Hct 37.3 (34.1-44.9) % MCV 77.5 L D (79.4-94.8) fl MCH 23.7 L (25.6-32.2) pg MCHC 30.6 L (32.2-35.5) g/dl RDW Std Deviation 53.1 H (36.4-46.3) fL Plt Count 277 (182-369) K/mm3 MPV 11.2 (9.4-12.3) fl Neut % (Auto) 60.8 (34.0-71.1) % Lymph % (Auto) 23.1 (19.3-51.7) % [place] % (Auto) 6.4 (4.7-12.5) % Eos % (Auto) 9.3 H (0.7-5.8) Baso % (Auto) 0.3 (0.1-1.2) % Neut # (Auto) 7.28 H (1.56-6.13) K/mm3 Lymph # (Auto) 2.77 (1.18-3.74) K/mm3 [place] # (Auto) 0.77 H (0.24-0.36) K/mm3 Eos # (Auto) 1.12 H (0.04-0.36) K/mm3 Baso # (Auto) 0.04 (0.01-0.08) K/mm3 Sodium 139 (136-145) mEq/L Potassium 5.0 (3.5-5.1) mEq/L Chloride 104 (98-107) mEq/L Carbon Dioxide 28 (21-32) mEq/L Anion Gap 12.0 (5-15) BUN 25 H (7-18) mg/dL Creatinine 0.9 (0.55-1.02) mg/dL Est Cr Clr Drug Dosing 50.16 mL/min Estimated GFR (MDRD) > 60 (>60) mL/min BUN/Creatinine Ratio 27.8 H (14-18) Glucose 166 H (74-106) mg/dL Calcium 9.1 (8.5-10.1) mg/dL Total Bilirubin 0.3 (0.2-1.0) mg/dL AST 11 L (15-37) U/L ALT 29 (14-59) U/L Alkaline Phosphatase 100 (46-116) U/L Troponin I < 0.017 (0.00-0.056) ng/mL NT-Pro-B Natriuret Pep 234 H (0-125) pg/mL Total Protein 7.3 (6.4-8.2) g/dl Albumin 3.7 (3.4-5.0) g/dl Globulin 3.6 gm/dL Albumin/Globulin Ratio 1.0 (1-2) Meds: Medications Discontinued Medications Generic Name Dose Route Start Last Admin Trade Name Freq PRN Reason Stop Dose Admin Albuterol 2.5 mg 02/01/20 17:45 Proventil Neb Soln NEB 02/03/20 17:46 ONETIME FREIDA Albuterol Confirm 02/01/20 17:50 02/01/20 17:59 Proventil Neb Soln Administered 02/01/20 17:51 7.5 mg Dose Administration 7.5 mg .ROUTE .STK-MED ONE Methylprednisolone Sodium Succinate 125 mg 02/01/20 17:27 02/01/20 18:28 Solu-Medrol IVPUSH 02/01/20 17:28 125 mg ONETIME ONE Administration Sodium Chloride 10 ml 02/01/20 17:27 02/01/20 17:42 Saline Flush FLUSH 10 ml ASDIRECTED PRN Administration Keep Vein Open - Re-Assessments/Exams Free Text/Narrative Re-Assessment/Exam: 02/01/20 17:53 Patient presents to the ED for the evaluation of her ongoing rash symptoms. I do highly believe this is all related to her asthma. She will get albuterol nebulizers x3 [id number], basic labs, EKG, troponin and a BNP to evaluate for heart failure or other issues. She will be sent home on oral steroids, steroid inhaler, along with a refill on her box of albuterol nebulizers that she states she is down to about the last 4 Nebules. Departure - Departure Time of Disposition: 19:14 Disposition: Home, Self-Care 01 Condition: Good Clinical Impression: Asthma with acute exacerbation Qualifiers: Asthma severity: unspecified severity Asthma persistence: unspecified Qualified Code(s): J45.901 - Unspecified asthma with (acute) exacerbation - Discharge Information *PRESCRIPTION DRUG MONITORING PROGRAM REVIEWED*: No *COPY OF PRESCRIPTION DRUG MONITORING REPORT IN PATIENT LINN: No Prescriptions: Fluticasone Propion/Salmeterol [Advair 250-50 Diskus] 1 inh PO BID #1 device predniSONE 20 mg PO ASDIRECTED #15 tab Albuterol [Proventil Neb Soln] 2.5 mg INH QID #1 box Instructions: Asthma, Adult, [id number], How to Use a Dry Powder Inhaler Referrals: Karly Drummond DIRECTOR OF LABOR AND DELIVERY [Primary Care Provider] - Forms: ED Department Discharge Additional Instructions: You were evaluated in the ER today for your cough and worsening respiratory symptoms. This is most likely due to an acute exacerbation of your asthma. You were given IV steroids in the ER, along with a few nebulizers and this seemed to help relieve most your symptoms. Your chest x-ray demonstrated no acute findings like fluid on your lungs. Your EKG was also within normal limits. Laboratory evaluation was unremarkable at today's visit. You were given a refill of your albuterol nebulizers, a new prescription for an Advair inhaler, please use 1 inhalation 2 times a day for further asthma control. Along with oral steroids, please take as directed until gone for this acute exacerbation. You will need to follow-up with Karly Drummond for a refill of the Advair inhaler, and to make sure that your asthma is getting better as expected. Please return to the ER at any time if symptoms change or worsen. Sepsis Event Note (ED) - Evaluation Sepsis Screening Result: No Definite Risk - Focused Exam Vital Signs: Vital Signs Temp Pulse Resp BP Pulse Ox Pulse Ox 02/01/20 18:01 96 02/01/20 17:06 97.2 F 91 22 H 180/70 H 92 L - My Orders Last 24 Hours: My Active Orders 02/01/20 17:27 Peripheral IV Insertion Adult [OM.PC] Routine - Assessment/Plan Last 24 Hours: My Active Orders 02/01/20 17:27 Peripheral IV Insertion Adult [OM.PC] Routine
--- NOTE | 2020-02-01 19:03 | CR ---
Chest: 2 views of the chest were obtained. Comparison: Prior chest x-ray of 10/06/[address] also dated 10/06/18. Heart size and mediastinum are normal. Lungs are clear with no acute parenchymal change. Bony structures show nothing acute. Impression: 1. Nothing acute is appreciated on 2 view chest x-ray. Diagnostic code #1 This report was dictated in MDT
== END 2020-02-01 19:35 | disposition home or self-care (01) ==
LOC: JD.ED 17:02
DX: J45.901 Unspecified asthma with (acute) exacerbation (principal); I10 Essential (primary) hypertension; E78.00 Pure hypercholesterolemia, unspecified; M19.90 Unspecified osteoarthritis, unspecified site; E11.9 Type 2 diabetes mellitus without complications; E66.9 Obesity, unspecified; Z68.41 Body mass index [BMI] 40.0-44.9, adult; Z88.1 Allergy status to other antibiotic agents; Z79.82 Long term (current) use of aspirin; Z79.4 Long term (current) use of insulin; Z79.899 Other long term (current) drug therapy
CPT/HCPCS: 36415; 71046; 80053; 83880; 84484; 85025; 93005; 94640; 96374; 99285; J2930

== ENCOUNTER 2023-04-30 08:49 | Day surgery (SDC) | payer BC, OTHER ==
[~2023-04-30 08:49] MED LIST changes: -Acetaminophen 325 MG Tab PO SCH; +Bupivacaine 0.5% 30 ML SDV ONE; +EPINEPHrine 1 MG/ML SDV ONE; -Lidocaine 1%/Sod Bicarbonate in NS 8.4% 1 ML Syringe IDERM PRN; -Pregabalin 25 MG Cap PO SCH; +Sodium Chloride 0.9% 10 ML Syringe FLUSH SCH; -oxyCODONE ER 10 MG TAB.ER PO SCH
[2023-04-30] MEDS ORDERED: Lidocaine 1% 30 ML SDV ONE (09:25)
[2023-04-30] MEDS ORDERED: Propofol 200 MG/20 ML SDV ONE (10:01)
[2023-04-30] MEDS ORDERED: Midazolam 1 MG/ML 2 ML SDV ONE (10:01)
[2023-04-30] MEDS ORDERED: fentaNYL 100 MCG/2 ML SDV ONE ×2 (10:01→11:57)
[2023-04-30] MEDS ORDERED: Sodium Chloride 0.9% 100 ML ONE (10:26)
[2023-04-30] MEDS ORDERED: Phenylephrine 1% 10 MG/ML SDV ONE (10:26)
[2023-04-30] MEDS ORDERED: Lidocaine 1% 5 ML VIAL ONE (10:26)
[2023-04-30] MEDS ORDERED: Rocuronium 50 MG/5 ML Vial ONE (10:26)
[2023-04-30] MEDS ORDERED: Dexamethasone 4 MG/ML 5 ML MDV ONE (10:41)
[2023-04-30] MEDS ORDERED: Metoclopramide 10 MG/2 ML SDV ONE (10:41)
[2023-04-30] MEDS ORDERED: fentaNYL 100 MCG/2 ML SDV IVPUSH PRN (11:07)
[2023-04-30] MEDS ORDERED: HYDROmorphone 0.5 MG/0.5 ML Syringe IVPUSH PRN (11:07)
[2023-04-30] MEDS ORDERED: Bacitracin Oint 15 GM Tube ONE (12:28)
[2023-04-30] MEDS ORDERED: Neostigmine Methylsulfate 10 MG/10 ML MDV ONE (12:38)
== END 2023-04-30 15:00 | disposition home or self-care (01) ==
LOC: JD.SDS 08:49
PROVIDERS: ATTEND Surgery
DX: L72.11 Pilar cyst (principal); I78.1 Nevus, non-neoplastic; E11.65 Type 2 diabetes mellitus with hyperglycemia; E78.2 Mixed hyperlipidemia; I11.0 Hypertensive heart disease with heart failure; I50.32 Chronic diastolic (congestive) heart failure; J45.901 Unspecified asthma with (acute) exacerbation; F33.42 Major depressive disorder, recurrent, in full remission; Z98.890 Other specified postprocedural states; Z79.84 Long term (current) use of oral hypoglycemic drugs; Z79.4 Long term (current) use of insulin; Z79.899 Other long term (current) drug therapy; Z88.0 Allergy status to penicillin
CPT/HCPCS: 11402; 11426; A9270; J0171; J0665; J1100; J2250; J2371; J2704; J2710; J2765; J3010; J3490; 00300

== ENCOUNTER 2024-03-17 15:08 | Emergency (ER) | payer BC ==
[2024-03-17 15:50] LABS: BASOPHILS ABSOLUTE AUTO 0.1 K/mm3 (0.0-0.2); BASOPHILS PERCENT AUTO 0.3 % (0.0-1.0); EOSINOPHILS ABSOLUTE AUTO 2.5 K/mm3 (0.0-0.4); EOSINOPHILS PERCENT AUTO 15.1 % (0.0-6.0); HEMATOCRIT 43.9 % (37.0-47.0); HEMOGLOBIN 14.7 gm/dl (12.0-16.0); IMMATURE GRAN ABSOLUTE AUTO 0.06 K/mm3 (0.00-0.05); IMMATURE GRAN PERCENT AUTO 0.4 % (0.0-0.4); LYMPHOCYTES PERCENT AUTO 11.8 % (24.0-44.0); MEAN CORPUSCULAR HEMOGLOBIN 30.2 pg (28.0-32.0); MEAN CORPUSCULAR HGB CONC 33.5 g/dl (32.0-36.0); MEAN CORPUSCULAR VOLUME 90.1 fl (83.0-99.0); MEAN PLATELET VOLUME 10.7 fl (9.4-12.3); MONOCYTES ABSOLUTE AUTO 0.9 K/mm3 (0.0-0.8); MONOCYTES PERCENT AUTO 5.5 % (0.0-8.0); NEUTROPHILS ABSOLUTE AUTO 11.3 K/mm3 (1.8-7.7); NEUTROPHILS PERCENT AUTO 66.9 % (41.0-71.0); PLATELET COUNT,PLT 269 K/mm3 (150-400); RED BLOOD CELL COUNT 4.87 M/mm3 (4.10-5.30); WHITE BLOOD CELL COUNT,WBC 16.82 K/mm3 (3.9-11.3)
[2024-03-17] MEDS ORDERED: Sodium Chloride 0.9% 10 ML Syringe FLUSH PRN (16:13)
[2024-03-17 16:14] LABS: A/G RATIO 1.2 (1-2); ANION GAP 15.3 (5-15); BILIRUBIN TOTAL 0.6 mg/dL (0.2-1.0); CALCIUM 9.8 mg/dL (8.5-10.1); CREATININE 1.2 mg/dL (0.55-1.02); EST CRCL DRUG DOSING (CG) 35.74 mL/min; POTASSIUM,K 5.3 mEq/L (3.5-5.1); PROTEIN TOTAL,TP 7.4 g/dl (6.4-8.2)
[2024-03-17] MEDS: Iopamidol 612 MG/ML 30 ML SDV IVPUSH ONE (16:38)
[2024-03-17] MEDS: Iopamidol 612 MG/ML 100 ML Bottle IVPUSH ONE (16:38)
[2024-03-17] MEDS: Sodium Chloride 0.9% 10 ML Syringe FLUSH ONE (16:38)
[2024-03-17 16:50] LABS: APPEARANCE,URINE CLEAR (Clear); BILIRUBIN,URINE NEGATIVE (Negative); COLOR,URINE YELLOW (Yellow); GLUCOSE,URINE 3+ (Negative); KETONES,URINE NEGATIVE (Negative); LEUKOCYTE ESTERASE,URINE TRACE (Negative); NITRITE,URINE NEGATIVE (Negative); OCCULT BLOOD,URINE NEGATIVE (Negative); PH,URINE 5.5 (5.0-8.0); PROTEIN,URINE NEGATIVE (Negative); UROBILINOGEN,URINE 0.2 (0.2-1.0)
[2024-03-17 16:58] LABS: BACTERIA,URINE FEW /hpf (FEW); MUCUS,URINE FEW /hpf (FEW); RBC,URINE 0-5 /hpf (0-5)
[2024-03-17 16:59] LABS: HYALINE CASTS,URINE 0-5 /lpf (0-5)
[2024-03-17] MEDS: Lidocaine 2% 11 ML Jelly Filled Syringe MUCMEM ONE (17:36)
== END 2024-03-17 19:30 | disposition home or self-care (01) ==
LOC: JD.ED 15:08
DX: K59.00 Constipation, unspecified (principal); N85.00 Endometrial hyperplasia, unspecified; I10 Essential (primary) hypertension; E78.00 Pure hypercholesterolemia, unspecified; J45.909 Unspecified asthma, uncomplicated; E11.9 Type 2 diabetes mellitus without complications; M19.90 Unspecified osteoarthritis, unspecified site; E66.9 Obesity, unspecified; Z88.0 Allergy status to penicillin; Z88.8 Allergy status to other drugs, medicaments and biological substances; Z79.82 Long term (current) use of aspirin; Z79.51 Long term (current) use of inhaled steroids; Z79.52 Long term (current) use of systemic steroids; Z79.4 Long term (current) use of insulin; Z79.84 Long term (current) use of oral hypoglycemic drugs; Z79.899 Other long term (current) drug therapy; Z68.39 Body mass index [BMI] 39.0-39.9, adult
CPT/HCPCS: 36415; 74019; 74177; 80053; 81001; 85025; 86140; 87086; 99284; A9270; J3490; Q9967

== ENCOUNTER 2024-06-01 06:30 | Day surgery (SDC) | payer BC ==
[~2024-06-01 06:30] MED LIST changes: -Bupivacaine 0.5% 30 ML SDV ONE; -EPINEPHrine 1 MG/ML SDV ONE; +HYDROmorphone 0.5 MG/0.5 ML Syringe IVPUSH PRN; -Lactated Ringers 1,000 ML IV SCH; +Lidocaine 1% 30 ML SDV ONE; +Ondansetron 4 MG/2 ML SDV IVPUSH PRN; +fentaNYL 100 MCG/2 ML SDV IVPUSH PRN
[2024-06-01] MEDS ORDERED: Propofol 200 MG/20 ML SDV ONE (06:39)
[2024-06-01] MEDS ORDERED: fentaNYL 100 MCG/2 ML SDV ONE (06:39)
[2024-06-01] MEDS ORDERED: Midazolam 1 MG/ML 2 ML SDV ONE (06:39)
[2024-06-01] MEDS: Lactated Ringers 1,000 ML IV SCH (06:45)
[2024-06-01] MEDS ORDERED: ePHEDrine 50 MG/ML SDV ONE (07:48)
== END 2024-06-01 11:10 | disposition home or self-care (01) ==
LOC: JD.SDS 06:30
PROVIDERS: ATTEND Obstetrics & Gynecology
DX: N84.0 Polyp of corpus uteri (principal); J45.909 Unspecified asthma, uncomplicated; E11.9 Type 2 diabetes mellitus without complications; I10 Essential (primary) hypertension; E78.5 Hyperlipidemia, unspecified; Z79.82 Long term (current) use of aspirin; Z79.4 Long term (current) use of insulin; Z79.84 Long term (current) use of oral hypoglycemic drugs; Z79.899 Other long term (current) drug therapy
CPT/HCPCS: 58558; 82947; J1596; J2250; J2704; J3010; J7120; 00952; J3490